=== PATIENT | female | born 1935 | race Two or more races ===

== ENCOUNTER → 2017-05-17 | Emergency (ER) | payer OTHER ==
[~2017-05-17] VITALS: Ht 162.6 cm; Wt 54.4 kg
[~2017-05-17] MED LIST: AVELOX ABC PAC400 MG; BENTYL10 MG/ML; CIPRO500 MG PO; Coreg PO; DICLOFENAC SODI50 MG PO; INTESTINEX1 CA1 PO; Levsin/Sl 0.125 MG TAB.SUBL PO; MEDROLPACK PO; PREMPRO 0.3 MG/1 TAB; PREVACID15 MG; ZEGERID OTC 201 EACH; [UNRECOGNIZED DRUG - OTHER]; diflucan PO; flagyl PO
== END | disposition home or self-care (01) ==
LOC: ER 09:32
DX: S22.41XA Multiple fractures of ribs, right side, initial encounter for closed fracture (principal); J90 Pleural effusion, not elsewhere classified; W18.09XA Striking against other object with subsequent fall, initial encounter; Y93.89 Activity, other specified; Y92.018 Other place in single-family (private) house as the place of occurrence of the external cause; Y99.8 Other external cause status

== ENCOUNTER 2017-05-31 09:56 | Outpatient (CLI) | payer OTHER | END 2017-05-31 15:00 | disposition home or self-care (01) | LOC: RAD 09:56 | DX: J98.8 Other specified respiratory disorders (principal); S22.41XA Multiple fractures of ribs, right side, initial encounter for closed fracture ==

== ENCOUNTER 2017-06-14 09:21 | Outpatient (CLI) | payer OTHER | END 2017-06-14 11:21 | disposition home or self-care (01) | LOC: SONOGRAMA 09:21 | DX: S22.31XA Fracture of one rib, right side, initial encounter for closed fracture (principal) ==

== ENCOUNTER 2017-06-14 09:34 | Outpatient (CLI) | payer OTHER | END 2017-06-14 11:21 | disposition home or self-care (01) | LOC: RAD 09:34 | DX: M85.88 Other specified disorders of bone density and structure, other site (principal) ==

== ENCOUNTER 2017-08-02 13:36 | Outpatient (CLI) | payer OTHER | END 2017-08-02 13:48 | disposition home or self-care (01) | LOC: TOM 13:36 | DX: M62.28 Nontraumatic ischemic infarction of muscle, other site (principal) ==

== ENCOUNTER 2017-08-10 09:21 | Outpatient (CLI) | payer OTHER | END 2017-08-10 15:00 | disposition home or self-care (01) | LOC: SONOGRAMA 09:21 | DX: N84.0 Polyp of corpus uteri (principal); D18.09 Hemangioma of other sites ==

== ENCOUNTER 2017-09-21 12:56 | Outpatient (CLI) | payer OTHER | END 2017-09-21 13:05 | disposition home or self-care (01) | LOC: MAMO-SONO 12:56 | DX: Z12.31 Encounter for screening mammogram for malignant neoplasm of breast (principal); Z87.898 Personal history of other specified conditions; N60.11 Diffuse cystic mastopathy of right breast; N60.12 Diffuse cystic mastopathy of left breast; N63.23 Unspecified lump in the left breast, lower outer quadrant ==

== ENCOUNTER 2017-10-24 13:54 | Outpatient (CLI) | payer OTHER | END 2017-10-24 13:56 | disposition home or self-care (01) | LOC: MRI 13:54 | DX: I63.8 Other cerebral infarction (principal) | CPT/HCPCS: 70551 ==

== ENCOUNTER 2018-04-05 13:05 | Outpatient (CLI) | payer OTHER | END 2018-04-05 19:20 | disposition home or self-care (01) | LOC: LAB 13:05 | DX: D68.8 Other specified coagulation defects (principal); N39.0 Urinary tract infection, site not specified; R82.79 Other abnormal findings on microbiological examination of urine ==

== ENCOUNTER 2018-04-05 13:25 | Outpatient (CLI) | payer OTHER | END 2018-04-05 13:35 | disposition home or self-care (01) | LOC: SONOGRAMA 13:25 | DX: R10.84 Generalized abdominal pain (principal); R07.89 Other chest pain ==

== ENCOUNTER → 2018-05-09 | Emergency (ER) | payer OTHER | END | disposition left against medical advice (07) | LOC: ER 11:42 | DX: Z53.20 Procedure and treatment not carried out because of patient's decision for unspecified reasons (principal) ==

== ENCOUNTER 2018-07-03 11:35 | Emergency (ER) | payer OTHER ==
[~2018-07-03] VITALS: Ht 162.6 cm; Wt 52.6 kg
[2018-07-03] MEDS ORDERED: DELZICOL400 M1 (12:07)
== END 2018-07-03 20:48 | disposition home or self-care (01) ==
LOC: ER 11:35
DX: K57.32 Diverticulitis of large intestine without perforation or abscess without bleeding (principal)

== ENCOUNTER 2018-09-26 12:19 | Outpatient (CLI) | payer OTHER ==
[~2018-09-26 12:19] MED LIST changes: +DELZICOL400 M1
== END 2018-09-26 15:48 | disposition home or self-care (01) ==
LOC: MAMO-SONO 12:19
DX: N60.11 Diffuse cystic mastopathy of right breast (principal); N60.12 Diffuse cystic mastopathy of left breast; Z12.31 Encounter for screening mammogram for malignant neoplasm of breast; Z87.898 Personal history of other specified conditions

== ENCOUNTER 2018-10-03 13:38 | Outpatient (CLI) | payer OTHER | END 2018-10-03 13:39 | disposition home or self-care (01) | LOC: SONOGRAMA 13:38 → MAMO-SONO 14:45 | DX: D25.9 Leiomyoma of uterus, unspecified (principal) ==

== ENCOUNTER 2019-01-02 14:04 | Outpatient (CLI) | payer OTHER | END 2019-01-02 14:07 | disposition home or self-care (01) | LOC: RAD 14:04 | DX: R10.84 Generalized abdominal pain (principal) ==

== ENCOUNTER 2019-02-07 11:19 | Outpatient (CLI) | payer OTHER | END 2019-02-07 11:31 | disposition home or self-care (01) | LOC: NUCLEAR 11:19 | DX: M81.0 Age-related osteoporosis without current pathological fracture (principal) ==

== ENCOUNTER 2019-03-15 16:49 | Emergency (ER) | payer OTHER ==
[~2019-03-15] VITALS: Ht 165.1 cm; Wt 52.6 kg
== END 2019-03-15 17:52 | disposition home or self-care (01) ==
LOC: ER 16:49
DX: R51 Headache (principal); R10.32 Left lower quadrant pain

== ENCOUNTER 2019-04-24 08:36 | Outpatient (CLI) | payer OTHER | END 2019-04-24 08:58 | disposition home or self-care (01) | LOC: SONOGRAMA 08:36 | DX: R10.84 Generalized abdominal pain (principal) ==

== ENCOUNTER 2019-08-01 13:25 | Outpatient (CLI) | payer OTHER | END 2019-08-01 13:56 | disposition home or self-care (01) | LOC: MRI 13:25 | DX: G43.001 Migraine without aura, not intractable, with status migrainosus (principal); M25.551 Pain in right hip; M25.552 Pain in left hip | CPT/HCPCS: 70551 ==

== ENCOUNTER 2020-05-01 09:39 | Outpatient (CLI) | payer OTHER | END 2020-05-01 09:43 | disposition home or self-care (01) | LOC: TOM 09:39 | PROVIDERS: ATTEND Surgery | DX: K57.90 Diverticulosis of intestine, part unspecified, without perforation or abscess without bleeding (principal); R19.4 Change in bowel habit; R10.13 Epigastric pain; K56.49 Other impaction of intestine; K56.600 Partial intestinal obstruction, unspecified as to cause; K56.50 Intestinal adhesions [bands], unspecified as to partial versus complete obstruction; K57.32 Diverticulitis of large intestine without perforation or abscess without bleeding; R63.4 Abnormal weight loss ==

== ENCOUNTER → 2020-05-23 14:17 | Outpatient (CLI) | payer OTHER | END | disposition home or self-care (01) | LOC: LAB 14:17 | PROVIDERS: ATTEND Obstetrics & Gynecology | DX: N30.00 Acute cystitis without hematuria (principal) ==

== ENCOUNTER 2020-09-30 09:57 | Outpatient (CLI) | payer OTHER | END 2020-09-30 10:06 | disposition home or self-care (01) | LOC: MAMO-SONO 09:57 | PROVIDERS: ATTEND Surgery | DX: Z12.31 Encounter for screening mammogram for malignant neoplasm of breast (principal); Z87.898 Personal history of other specified conditions; N60.11 Diffuse cystic mastopathy of right breast; N60.12 Diffuse cystic mastopathy of left breast ==

== ENCOUNTER → 2020-10-23 | Outpatient (CLI) | payer OTHER | END | disposition home or self-care (01) | LOC: RAD 11:21 | PROVIDERS: ATTEND Internal Medicine | DX: M25.561 Pain in right knee (principal); M25.562 Pain in left knee; M25.551 Pain in right hip; M25.552 Pain in left hip ==

== ENCOUNTER → 2020-11-03 | Outpatient (CLI) | payer OTHER | END | disposition home or self-care (01) | LOC: RAD 13:30 | DX: M54.5 Low back pain (principal); M54.6 Pain in thoracic spine ==

== ENCOUNTER 2020-12-03 08:00 | Outpatient (CLI) | payer OTHER | END 2020-12-03 08:02 | disposition home or self-care (01) | LOC: NUCLEAR 08:00 | DX: G89.21 Chronic pain due to trauma (principal) | CPT/HCPCS: 78315; A9503 ==

== ENCOUNTER 2021-02-09 12:41 | Outpatient (CLI) | payer OTHER | END 2021-02-09 12:42 | disposition home or self-care (01) | LOC: NUCLEAR 12:41 | PROVIDERS: ATTEND Internal Medicine | DX: M81.0 Age-related osteoporosis without current pathological fracture (principal) ==

== ENCOUNTER 2021-02-10 08:00 | Outpatient (CLI) | payer OTHER | END 2021-02-10 08:30 | disposition home or self-care (01) | LOC: PPH VACUNA 08:00 | PROVIDERS: ATTEND Emergency Medicine Pediatric Emergency Medicine | DX: Z23 Encounter for immunization (principal) ==

== ENCOUNTER 2021-06-19 16:08 | Outpatient (CLI) | payer OTHER ==
[2021-07-11] MEDS ORDERED: ADVIL200 M1 PO (13:11)
[2021-07-11] MEDS ORDERED: CARVEDILOL12.5 MG (13:11)
[2021-07-11] MEDS ORDERED: INTESTINEX680 M1 PO (13:12)
[2021-07-11] MEDS ORDERED: LIBRAX (13:14)
[2021-07-11] MEDS ORDERED: TYLENOL ARTHRI650 MG PO (15:58)
== END 2021-06-19 16:17 | disposition home or self-care (01) ==
LOC: SONOGRAMA 16:08
PROVIDERS: ATTEND Obstetrics & Gynecology
DX: N83.209 Unspecified ovarian cyst, unspecified side (principal); D25.9 Leiomyoma of uterus, unspecified

== ENCOUNTER → 2021-07-11 | Emergency (ER) | payer OTHER ==
[~2021-07-11] VITALS: Ht 165.1 cm; Wt 49.9 kg
[~2021-07-11] MED LIST changes: +ADVIL200 M1 PO; +CARVEDILOL12.5 MG; +INTESTINEX680 M1 PO; +LIBRAX; +TYLENOL ARTHRI650 MG PO
== END | disposition home or self-care (01) ==
LOC: ER 12:43
DX: S80.02XA Contusion of left knee, initial encounter (principal); S80.01XA Contusion of right knee, initial encounter; S50.11XA Contusion of right forearm, initial encounter; W19.XXXA Unspecified fall, initial encounter; Y92.89 Other specified places as the place of occurrence of the external cause; M25.562 Pain in left knee; M25.561 Pain in right knee

== ENCOUNTER 2021-08-06 13:22 | Outpatient (CLI) | payer OTHER | END 2021-08-06 13:31 | disposition home or self-care (01) | LOC: RAD 13:22 | PROVIDERS: ATTEND Internal Medicine | DX: M54.2 Cervicalgia (principal) ==

== ENCOUNTER 2021-08-24 09:00 | Outpatient (CLI) | payer OTHER | END 2021-08-24 09:15 | disposition home or self-care (01) | LOC: PPH VACUNA 09:00 | PROVIDERS: ATTEND Emergency Medicine Pediatric Emergency Medicine | DX: Z23 Encounter for immunization (principal) ==

== ENCOUNTER 2021-09-10 13:39 | Emergency (ER) | payer OTHER ==
[~2021-09-10] VITALS: Ht 162.6 cm; Wt 49.9 kg
== END 2021-09-10 20:02 | disposition home or self-care (01) ==
LOC: ER 13:39
DX: K57.30 Diverticulosis of large intestine without perforation or abscess without bleeding (principal); Z88.6 Allergy status to analgesic agent; Z91.09 Other allergy status, other than to drugs and biological substances

== ENCOUNTER 2021-09-28 08:26 | Outpatient (CLI) | payer OTHER | END 2021-09-28 09:00 | disposition home or self-care (01) | LOC: SONOGRAMA 08:26 | PROVIDERS: ATTEND Internal Medicine | DX: R10.84 Generalized abdominal pain (principal) ==

== ENCOUNTER 2021-10-01 13:32 | Outpatient (CLI) | payer OTHER | END 2021-10-01 13:41 | disposition home or self-care (01) | LOC: MAMO-SONO 13:32 | PROVIDERS: ATTEND Surgery | DX: N60.11 Diffuse cystic mastopathy of right breast (principal); N60.12 Diffuse cystic mastopathy of left breast ==

== ENCOUNTER 2021-11-09 11:08 | Outpatient (CLI) | payer OTHER | END 2021-11-09 11:50 | disposition home or self-care (01) | LOC: ASH CLINIC 11:08 | PROVIDERS: ATTEND Emergency Medicine Pediatric Emergency Medicine | DX: U07.1 COVID-19 (principal) ==

== ENCOUNTER 2022-01-25 14:27 | Outpatient (CLI) | payer OTHER | END 2022-01-25 14:47 | disposition home or self-care (01) | LOC: PPH VACUNA 14:27 | PROVIDERS: ATTEND Emergency Medicine Pediatric Emergency Medicine | DX: Z23 Encounter for immunization (principal) ==

== ENCOUNTER 2022-10-04 11:46 | Outpatient (CLI) | payer OTHER | END 2022-10-04 12:00 | disposition home or self-care (01) | LOC: RAD 11:46 | PROVIDERS: ATTEND Internal Medicine | DX: N60.11 Diffuse cystic mastopathy of right breast (principal); N60.12 Diffuse cystic mastopathy of left breast; M54.2 Cervicalgia; Z12.31 Encounter for screening mammogram for malignant neoplasm of breast ==

== ENCOUNTER 2022-10-08 14:40 | Outpatient (CLI) | payer OTHER | END 2022-10-08 14:55 | disposition home or self-care (01) | LOC: PPH VACUNA 14:40 | PROVIDERS: ATTEND Emergency Medicine Pediatric Emergency Medicine | DX: Z23 Encounter for immunization (principal) ==

== ENCOUNTER 2022-10-15 09:48 | Outpatient (CLI) | payer OTHER | END 2022-10-15 10:00 | disposition home or self-care (01) | LOC: SONOGRAMA 09:48 | PROVIDERS: ATTEND Internal Medicine Gastroenterology | DX: R10.11 Right upper quadrant pain (principal) ==

== ENCOUNTER 2022-10-25 12:21 | Outpatient (CLI) | payer OTHER | END 2022-10-25 12:25 | disposition home or self-care (01) | LOC: SONOGRAMA 12:21 | PROVIDERS: ATTEND Surgery | DX: N60.11 Diffuse cystic mastopathy of right breast (principal); N60.12 Diffuse cystic mastopathy of left breast ==

== ENCOUNTER 2022-11-12 14:29 | Outpatient (CLI) | payer OTHER | END 2022-11-12 14:45 | disposition home or self-care (01) | LOC: RAD 14:29 | PROVIDERS: ATTEND Internal Medicine | DX: M79.641 Pain in right hand (principal); M79.642 Pain in left hand ==

== ENCOUNTER 2022-12-20 10:52 | Outpatient (CLI) | payer OTHER | END 2022-12-20 11:05 | disposition home or self-care (01) | LOC: SONOGRAMA 10:52 | PROVIDERS: ATTEND Internal Medicine | DX: M79.641 Pain in right hand (principal); M79.642 Pain in left hand ==

== ENCOUNTER 2022-12-28 13:07 | Outpatient (CLI) | payer OTHER | END 2022-12-28 13:11 | disposition home or self-care (01) | LOC: NUCLEAR 13:07 | PROVIDERS: ATTEND Internal Medicine | DX: M81.0 Age-related osteoporosis without current pathological fracture (principal) ==

== ENCOUNTER 2023-03-21 13:45 | Outpatient (CLI) | payer OTHER | END 2023-03-21 13:52 | disposition home or self-care (01) | LOC: RAD 13:45 | PROVIDERS: ATTEND Internal Medicine | DX: M54.50 Low back pain, unspecified (principal); N60.12 Diffuse cystic mastopathy of left breast; Z88.6 Allergy status to analgesic agent; Z91.041 Radiographic dye allergy status ==

== ENCOUNTER 2023-07-13 11:38 | Outpatient (CLI) | payer OTHER | END 2023-07-13 11:42 | disposition home or self-care (01) | LOC: RAD 11:38 | PROVIDERS: ATTEND Internal Medicine | DX: M79.661 Pain in right lower leg (principal); M54.2 Cervicalgia ==

== ENCOUNTER 2023-07-25 10:25 | Outpatient (CLI) | payer OTHER | END 2023-07-25 10:28 | disposition home or self-care (01) | LOC: NUCLEAR 10:25 | PROVIDERS: ATTEND Internal Medicine | DX: M79.661 Pain in right lower leg (principal) ==

== ENCOUNTER 2023-08-29 14:32 | Outpatient (CLI) | payer OTHER | END 2023-08-29 14:33 | disposition home or self-care (01) | LOC: RAD 14:32 | PROVIDERS: ATTEND Internal Medicine | DX: M54.50 Low back pain, unspecified (principal); M25.552 Pain in left hip ==

== ENCOUNTER 2023-12-05 11:15 | Outpatient (CLI) | payer OTHER ==
[~2023-12-05 11:15] MED LIST changes: +CELEBREX200MG PO; +DICLOFENAC EPO1 EACH TOP; +MELOXICAM15 MG PO; +METHOCARBAMOL500 MG PO
== END 2023-12-05 11:16 | disposition home or self-care (01) ==
LOC: SONOGRAMA 11:15
PROVIDERS: ATTEND Internal Medicine
DX: N60.11 Diffuse cystic mastopathy of right breast (principal); N60.12 Diffuse cystic mastopathy of left breast

== ENCOUNTER 2023-12-16 08:07 | Outpatient (CLI) | payer OTHER | END 2023-12-16 08:08 | disposition home or self-care (01) | LOC: TOM 08:07 | PROVIDERS: ATTEND Internal Medicine Gastroenterology | DX: K76.9 Liver disease, unspecified (principal); R10.32 Left lower quadrant pain ==

== ENCOUNTER → 2024-01-09 13:58 | Outpatient (CLI) | payer OTHER | END | disposition home or self-care (01) | LOC: RAD 13:58 | PROVIDERS: ATTEND Neurological Surgery | DX: M54.2 Cervicalgia (principal) ==

== ENCOUNTER 2024-03-28 13:04 | Outpatient (CLI) | payer OTHER | END 2024-03-28 13:17 | disposition home or self-care (01) | LOC: MAMO-SONO 13:04 | PROVIDERS: ATTEND Internal Medicine | DX: N60.11 Diffuse cystic mastopathy of right breast (principal); N60.12 Diffuse cystic mastopathy of left breast; Z12.31 Encounter for screening mammogram for malignant neoplasm of breast ==

== ENCOUNTER 2024-06-25 08:37 | Outpatient (CLI) | payer OTHER | END 2024-06-25 10:27 | disposition home or self-care (01) | LOC: TOM 08:37 | DX: R19.5 Other fecal abnormalities (principal) ==

== ENCOUNTER 2024-07-17 12:53 | Outpatient (CLI) | payer OTHER | END 2024-07-17 13:00 | disposition home or self-care (01) | LOC: RAD 12:53 | PROVIDERS: ATTEND Internal Medicine | DX: M25.562 Pain in left knee (principal) ==

== ENCOUNTER 2025-01-21 12:04 | Outpatient (CLI) | payer OTHER | END 2025-01-21 12:15 | disposition home or self-care (01) | LOC: NUCLEAR 12:04 | PROVIDERS: ATTEND Internal Medicine | DX: M81.0 Age-related osteoporosis without current pathological fracture (principal) ==

== ENCOUNTER 2025-04-02 11:50 | Outpatient (CLI) | payer OTHER | END 2025-04-02 11:52 | disposition home or self-care (01) | LOC: MAMO-SONO 11:50 | PROVIDERS: ATTEND Surgery | DX: N60.11 Diffuse cystic mastopathy of right breast (principal); N60.12 Diffuse cystic mastopathy of left breast; Z12.31 Encounter for screening mammogram for malignant neoplasm of breast ==

== ENCOUNTER 2025-05-10 16:29 | Emergency (ER) | payer OTHER ==
[~2025-05-10] VITALS: Ht 162.6 cm; Wt 56.7 kg
[2025-05-10] MEDS ORDERED: DICY20TA PO (17:56)
[2025-05-10] MEDS ORDERED: 0.9 % SODIUM CHLORIDE 500 ML IV ONE (18:15)
[2025-05-10] MEDS ORDERED: AMLODIPINE BESYLATE 2.5 MG TABLET PO ONE (18:30)
[2025-05-10 19:20] LABS: URINE APPEARANCE Clear; URINE BILIRRUBIN Negative (NEGATIVE); URINE BLOOD Negative; URINE COLOR Yellow; URINE GLUCOSE Negative (NEGATIVE); URINE KETONE Negative (NEGATIVE); URINE LEUKOCYTE Trace; URINE NITRATE Negative; URINE PROTEIN Negative (NEGATIVE); URINE UROBILINOGEN 0.2 E.U./dl
[2025-05-10 19:24] LABS: URINE BACTERIA 104.0 uL (0.0-1933); URINE EPITHELIAL CELLS 7.0 uL (0.0-38.8); URINE RBC 5.3 uL (0.0-20.8); URINE WBC 2.2 uL (0.0-23.2)
[2025-05-10 19:27] LABS: URINE CAST 0.14 uL (0.0-1.40)
[2025-05-10 19:31] LABS: BASO % 0.6 % (0.1-1.2); EOS # 0.29 (0.04-0.54); EOS % 4.6 % (0.7-7.0); LYMPH # 1.35 (1.18-3.74); LYMPH % 21.4 % (19.3-53.1); MEAN PLATELET VOLUME 11.70 fl (9.4-12.4); MONO # 0.58 (0.24-0.82); MONO % 9.2 % (4.7-12.5); NEUT # 4.05 (1.56-6.13); NEUT % 64.0 % (34.0-71.1); RED CELL DISTRIBUTION WIDTH 14.0 % (11.6-14.4)
[2025-05-10 19:41] LABS: ALT/SGPT 349.0 U/L (12-78); AST/SGOT 55.0 U/L (15-37); BILIRUBIN TOTAL 0.57 mg/dL (0.3-1.2); BUN CREA RATIO 26.0 (7.0-25.0); CREATININE SERUM 0.8 mg/dL (0.55-1.02); GFR 67.69; GLOBULINA 3.4 G/DL (2.4-3.5); GLUCOSE FASTING 96.0 mg/dL (65-100); OSMOLALITY SERUM 286.0 MOSM/KG (275-295)
[2025-05-10 19:44] LABS: COVID-19 AG NEGATIVE (NEGATIVE)
[2025-05-10] MEDS ORDERED: INTESTINEX680 M1 PO (20:22)
== END 2025-05-11 01:26 | disposition home or self-care (01) ==
LOC: ER 16:30
PROVIDERS: Preventive Medicine Public Health & General Preventive Medicine
DX: B34.9 Viral infection, unspecified (principal); R10.9 Unspecified abdominal pain; R50.9 Fever, unspecified; A08.8 Other specified intestinal infections; I10 Essential (primary) hypertension; Z88.5 Allergy status to narcotic agent; Z91.041 Radiographic dye allergy status; Z20.822 Contact with and (suspected) exposure to COVID-19
CPT/HCPCS: 36415; 96365; 96366; 99282; J7042